=== PATIENT | male | born 1990 | race Caucasian/White ===

== ENCOUNTER → 2017-12-01 | Outpatient (CLI) | payer BC | LOC: COL.CARD 10:18 | DX: R55 Syncope and collapse (principal) ==

== ENCOUNTER → 2019-01-19 | Outpatient (CLI) | payer BC | LOC: COL.RAD 01-15 14:30 | DX: M54.2 Cervicalgia (principal) | CPT/HCPCS: Q9967 ==

== ENCOUNTER → 2020-01-11 | Outpatient (CLI) | payer BC | LOC: COL.RAD 07:37 | DX: R10.84 Generalized abdominal pain (principal) ==